=== PATIENT | male | born 1975 ===

== ENCOUNTER 2016-07-15 17:01 | Emergency (ER) | payer SELFPAY ==
[2016-07-15 17:55] LABS: MEAN CORPUSCULAR HEMOGLOBIN 30.6 pg (27.0-33.0); MEAN CORPUSCULAR HGB CONC 32.6 g/dl (32.0-36.5); MEAN CORPUSCULAR VOLUME 93.7 fl (80.0-96.0); WHITE BLOOD COUNT 4.5 K/mm3 (4.0-10.0)
[2016-07-15 18:26] LABS: ALBUMIN 3.9 GM/DL (3.2-5.2); ALKALINE PHOSPHATASE 80 U/L (45-117); ALT/SGPT 25 U/L (12-78); ANION GAP 8 MEQ/L (8-16); AST/SGOT 13 U/L (15-37); BILIRUBIN,DIRECT 0.3 MG/DL (0.0-0.2); BILIRUBIN,TOTAL 1.8 MG/DL (0.2-1.0); BLOOD UREA NITROGEN 9 MG/DL (7-18); CALCIUM LEVEL 8.6 MG/DL (8.5-10.1); CARBON DIOXIDE LEVEL 28 MEQ/L (21-32); CHLORIDE LEVEL 106 MEQ/L (98-107); CREATININE FOR GFR 0.98 MG/DL (0.70-1.30); GLOMERULAR FILTRATION RATE > 60.0 (>60); GLUCOSE, FASTING 99 MG/DL (70-105); POTASSIUM SERUM 3.7 MEQ/L (3.5-5.1); SODIUM LEVEL 142 MEQ/L (136-145); TOTAL PROTEIN 7.8 GM/DL (6.4-8.2)
--- NOTE | 2016-07-15 18:53 | EDDOCDS ---
Physician Documentation [facility] Name: Damon Pryor Age: 41 yrs Sex: Male : 1975 Arrival Date: 07/15/2016 Time: 17:01 Bed 12 Private MD: Disposition: 07/15/16 18:40 Discharged to Home/Self Care. Impression: Suicidal ideations, Suicide attempt. - Condition is Stable. - Discharge Instructions: Depression, Adult, Depression, Adult, [id number]. - Medication Reconciliation, Local Pharmacy Hours form. - Follow up: Private Physician; When: appropriate facility for psychiatric care. - Problem is new. - Symptoms are unchanged. Historical: - Allergies: CEPHALOSPORINS; - Home Meds: 1. ibuprofen 400 mg Oral tab 3 times per day as needed - PMHx: Allergies, Seasonal; - PSHx: none; - Social history: No barriers to communication noted, The patient speaks fluent Spanish, Smoking status: Patient states was never smoker of tobacco. - Family history: Not pertinent. - : The pt / caregiver states he / she is not on anticoagulants. Home medication list is obtained from the facility AUG. - Exposure Risk Screening:: None identified. Vital Signs: 07/15 17:10 BP 130 / 6; Pulse 62; Resp 16; Pulse Ox 99% on R/A; Weight 104.33 kg / 230.01 lbs (R); kr3 Height 6 ft. (182.88 cm) (R); 18:19 Temp 98(O); kr3 18:51 BP 140 / 88; Pulse 85; Resp 16; Pulse Ox 98% on R/A; Pain 3/10; kr3 17:10 Body Mass Index 31.19 (104.33 kg, 182.88 cm) kr3 MDM: 17:05 Consult PFS/PSA/Vehicle Insurance Agent ordered. sd1 17:05 Consult PFS/PSA/Vehicle Insurance Agent: Patient's case requires discussion with on-call sd1 Psychiatrist ordered. 17:05 PSA/PFS to call Nursing Stock Ranch Supervisor, to enter patient data on [place] if patient sd1 involuntarily admitted or transferred for SI or HI ordered. 17:05 Confirm accurate psychiatric medication list and times of last dosage ordered. sd1 17:05 Detain Pt Until Medically/PFS Cleared ordered. sd1 17:06 Acetaminophen Level Ordered. EDMS 17:06 Basic Metabolic Profile Ordered. EDMS 17:06 Complete Blood Count Ordered. EDMS 17:06 Drug Eval Toxicology ED Only Ordered. EDMS 17:06 Ethyl Alcohol (ethanol) Ordered. EDMS 17:06 Liver Profile Ordered. EDMS 17:06 Salicylate Level Ordered. EDMS 17:06 Thyroid Stimulating Hormone Ordered. EDMS 17:15 Chest, 1 View Ordered. EDMS 17:15 ECG WITH READING ER PHYS+CARDIAG ordered. EDMS 17:15 CIP Ordered. EDMS 17:15 Troponin Ordered. EDMS 18:24 Complete Blood Count Reviewed. sd1 18:24 CIP Reviewed. sd1 18:24 Troponin Reviewed. sd1 18:33 Acetaminophen Level Reviewed. sd1 18:33 Liver Profile Reviewed. sd1 18:33 Salicylate Level Reviewed. sd1 18:33 Basic Metabolic Profile Reviewed. sd1 18:33 Ethyl Alcohol (ethanol) Reviewed. sd1 18:33 Thyroid Stimulating Hormone Reviewed. sd1 Signatures: Dispatcher [employer] [facility] Carmelina Webb MD MD sd1 Jyoti Nunez,RN RN kr3 [facility]
--- NOTE | 2016-07-15 18:53 | EDDOCDS ---
Nurse's Notes [facility] Name: Damon Pryor Age: 41 yrs Sex: Male : 1975 Arrival Date: 07/15/2016 Time: 17:01 Bed 12 Private MD: Diagnosis: Suicidal ideations;Suicide attempt Presentation: 07/15 17:03 Presenting complaint: EMS states: right lateral chest pain this afternoon. HAs been kr3 upset over grandfather dying and had been crying. Was hyperventilating per EMS. After calming symptoms were gone. Mental Health Triage Level: Level 2: The patient displays active suicidal ideations. Adult Sepsis Screening: The patient does not have new or worsening altered mentation. Patient's respiratory rate is less than 22. Systolic blood pressure is greater than 100. Patient has a qSOFA score of 0- Negative Sepsis Screen. Status: Patient is not a automotive service director or dependent. Transition of care: patient was not received from another setting of care. 17:03 Acuity: NICOLE Level 3 kr 17:03 Method Of Arrival: Ambulance 3 17:07 Presenting complaint: Patient states: right upper chest which began 1 day ago. Reports dwayne does not want to be here and wants to join his grandfather who recently. He states will try again to end his life. Suicide/Homicide risk assessment- the patient denies having any suicidal and/or homicidal ideations and does not present with any other emotional, behavioral or mental health complaints. 17:11 Presenting complaint: guards reports were driving home from , patient in back of 3 van and guards noticed patient had placed a plastic bag over his head. Patient has not been eating well recently. Triage Assessment: 17:07 General: Appears in no apparent distress, Behavior is cooperative, quiet. General: kr3 Behavior is crying. Pain: Pain currently is 4 out of 10 on a pain scale. Pt Declines HIV testing. The patient is triaged at the bedside. See Assessment in Nurses Notes section of ED record. Neurological: Level of Consciousness is awake, alert. Respiratory: Respiratory effort is even, unlabored. Derm: Skin is normal. Historical: - Allergies: CEPHALOSPORINS; - Home Meds: 1. ibuprofen 400 mg Oral tab 3 times per day as needed - PMHx: Allergies, Seasonal; - PSHx: none; - Social history: No barriers to communication noted, The patient speaks fluent Estonian, Smoking status: Patient states was never smoker of tobacco. - Family history: Not pertinent. - : The pt / caregiver states he / she is not on anticoagulants. Home medication list is obtained from the facility AUG. - Exposure Risk Screening:: None identified. Screenin:14 Screening information is obtained from the patient. Fall risk: No risks identified. kr3 Assistance ADL's: Requires assistance with meal preparation, this assistance is provided by residence staff. Abuse/DV Screen: The patient / caregiver reports he/she is: not in a situation that causes fear, pain or injury. Nutritional screening: No deficits noted. Advance Directives: Currently, there is no health care proxy. home support is adequate. Assessment: 18:17 Reassessment: Patient appears in no apparent distress at this time. General: Behavior kr3 is cooperative. Respiratory: Respiratory effort is even, unlabored. Derm: Skin is normal. Social Work Consult: 17:25 Social Work Note: Per Lt Graves at [facility], pt will be kept ac on 1:1 until an inpatient psychiatric bed can be found at an approved forensic psych. facility. Pt to be d/c in custody of corrections officers. No further intervention required at this time. Vital Signs: 17:10 BP 130 / 6; Pulse 62; Resp 16; Pulse Ox 99% on R/A; Weight 104.33 kg (R); Height 6 ft. kr3 (182.88 cm) (R); 18:19 Temp 98(O); kr3 18:51 BP 140 / 88; Pulse 85; Resp 16; Pulse Ox 98% on R/A; Pain 3/10; kr3 17:10 Body Mass Index 31.19 (104.33 kg, 182.88 cm) kr3 Vitals: 17:10 Log In Time N/A - ambulance arrival. kr3 ED Course: 17:01 Patient visited by Hailey Levy PCA. ar3 17:01 Patient moved to Waiting ar3 17:02 Jyoti Nunez,RN is Primary Nurse. ar3 17:02 Patient moved to 12 ar3 17:04 Triage Initiated kr3 17:05 Carmelina Webb MD is Attending Physician. sd1 17:14 Patient visited by Carmelina Webb MD. sd1 17:34 Patient visited by Herberth Diego PCA. jmv 17:34 EKG done. (by ED staff). Reviewed by Carmelina Webb MD. jmv 17:44 Troponin Sent. kr3 17:44 CIP Sent. kr3 17:44 Acetaminophen Level Sent. kr3 17:44 Basic Metabolic Profile Sent. kr3 17:44 Complete Blood Count Sent. kr3 17:44 Ethyl Alcohol (ethanol) Sent. kr3 17:44 Liver Profile Sent. kr3 17:44 Salicylate Level Sent. kr3 17:44 Thyroid Stimulating Hormone Sent. kr3 18:17 Patient visited by Jyoti Nunez RN. kr3 18:18 The patient / caregiver is instructed regarding the plan of care and ED course. kr3 Accompanied by Law Enforcement, Patient has correct armband on for positive identification. Bed in low position. Call light in reach. Side rails up X2. 18:23 Drug Eval Toxicology ED Only Sent. kr3 18:51 No IV's were initiated during this patient's visit. No procedures done that require kr3 assistance. Output: 18:24 Urine: 300.00ml (Voided); Total: 300.00ml. kr3 Order Results: Lab Order: Acetaminophen Level; SPEC'M 07/15/16 17:40 Test: ACETAMINOPHEN LEVEL; Value: < 2.0; Range: 10.0-30.0; Abnormal: Below low normal; Units: UG/ML; Status: F Lab Order: Basic Metabolic Profile; SPEC'M 07/15/16 17:40 Test: GLUCOSE, FASTING; Value: 99; Range: 70-105; Units: MG/DL; Status: F Test: BLOOD UREA NITROGEN; Value: 9; Range: 7-18; Units: MG/DL; Status: F Test: CREATININE FOR GFR; Value: 0.98; Range: 0.70-1.30; Units: MG/DL; Status: F Test: GLOMERULAR FILTRATION RATE; Value: > 60.0; Range: >60; Status: F Test: SODIUM LEVEL; Value: 142; Range: 136-145; Units: MEQ/L; Status: F Test: POTASSIUM SERUM; Value: 3.7; Range: 3.5-5.1; Units: MEQ/L; Status: F Test: CHLORIDE LEVEL; Value: 106; Range: 98-107; Units: MEQ/L; Status: F Test: CARBON DIOXIDE LEVEL; Value: 28; Range: 21-32; Units: MEQ/L; Status: F Test: ANION GAP; Value: 8; Range: 8-16; Units: MEQ/L; Status: F Test: CALCIUM LEVEL; Value: 8.6; Range: 8.5-10.1; Units: MG/DL; Status: F Test Note: ; Units are mL/min/1.73 m2 Chronic Kidney Disease Staging per NKF: Stage I & II GFR >=60 Normal to Mildly Decreased Stage III GFR 30-59 Moderately Decreased Stage IV GFR 15-29 Severely Decreased Stage V GFR <15 Very Little GFR Left ESRD GFR <15 on ELECTRIC REFRIGERATOR PREPARER Lab Order: Complete Blood Count; SPEC'M 07/15/16 17:40 Test: WHITE BLOOD COUNT; Value: 4.5; Range: 4.0-10.0; Units: K/mm3; Status: F Test: RED BLOOD COUNT; Value: 4.97; Range: 4.30-6.10; Units: M/mm3; Status: F Test: HEMOGLOBIN; Value: 15.2; Range: 14.0-18.0; Units: g/dl; Status: F Test: HEMATOCRIT; Value: 46.6; Range: 42.0-52.0; Units: %; Status: F Test: MEAN CORPUSCULAR VOLUME; Value: 93.7; Range: 80.0-96.0; Units: fl; Status: F Test: MEAN CORPUSCULAR HEMOGLOBIN; Value: 30.6; Range: 27.0-33.0; Units: pg; Status: F Test: MEAN CORPUSCULAR HGB CONC; Value: 32.6; Range: 32.0-36.5; Units: g/dl; Status: F Test: RED CELL DISTRIBUTION WIDTH; Value: 13.0; Range: 11.5-14.5; Units: %; Status: F Test: PLATELET COUNT, AUTOMATED; Value: 103; Range: 150-450; Abnormal: Below low normal; Units: k/mm3; Status: F Test Note: ; Lge amt of large plt noted onslide. --- 07/15/161801 --- PLT previously reported as: 103 L k/mm3 Lab Order: Ethyl Alcohol (ethanol); 07/15/16 17:40 Test: ETHYL ALCOHOL (ETHANOL); Value: < 0.003; Range: 0.000-0.010; Units: %; Status: F Lab Order: Liver Profile; [facility] 07/15/16 17:40 Test: AST/SGOT; Value: 13; Range: 15-37; Abnormal: Below low normal; Units: U/L; Status: F Test: ALT/SGPT; Value: 25; Range: 12-78; Units: U/L; Status: F Test: ALKALINE PHOSPHATASE; Value: 80; Range: 45-117; Units: U/L; Status: F Test: BILIRUBIN,TOTAL; Value: 1.8; Range: 0.2-1.0; Abnormal: Above high normal; Units: MG/DL; Status: F Test: BILIRUBIN,DIRECT; Value: 0.3; Range: 0.0-0.2; Abnormal: Above high normal; Units: MG/DL; Status: F Test: TOTAL PROTEIN; Value: 7.8; Range: 6.4-8.2; Units: GM/DL; Status: F Test: ALBUMIN; Value: 3.9; Range: 3.2-5.2; Units: GM/DL; Status: F Test: ALBUMIN/GLOBULIN RATIO; Value: 1.00; Range: 1.00-1.93; Status: F Lab Order: Salicylate Level; 07/15/16 17:40 Test: SALICYLATE LEVEL; Value: < 1.7; Range: 5.0-30.0; Abnormal: Below low normal; Units: MG/DL; Status: F Lab Order: Thyroid Stimulating Hormone; 07/15/16 17:40 Test: THYROID STIMULATING HORMONE; Value: 1.990; Range: 0.358-3.740; Units: uIU/ML; Status: F Lab Order: CIP; 07/15/16 17:40 Test: CPK CREATINE PHOSPHOKINASE; Value: 193; Range: 39-308; Units: U/L; Status: F Test: CK-MB VALUE MASS; Value: 1.0; Range: 0.0-3.6; Units: NG/ML; Status: F Test: MB/CK RELATIVE INDEX; Value: 0.51; Range: < OR =4; Status: F Test Note: ; DIAGNOSIS CRITERIA MMB ng/ml Relative Index (RI) NON-AMI < or = 5 N/A YOUNG ZONE > 5 < or = 4 AMI > 5 > 4 Lab Order: Troponin; STANLEY'Partha 07/15/16 17:40 Test: TROPONIN I; Value: < 0.02; Range: < 0.10; Units: NG/ML; Status: F Test Note: ; Troponin I Reference Interval for [place] LOCI: 99th Percentile= 0.00-0.045 ng/ml Risk Stratification: <= 0.10 ng/ml Decreased Risk for Adverse Clinical Events. 0.10-1.50 ng/ml Increased Risk for Adverse Clinical Events. Evaluation of additional criterion and/or repeat testing in 2-6 hours is suggested to rule out myocardial damage. >= 1.50 ng/ml Indicative of Myocardial Injury. Outcome: 18:19 No special radiology studies were completed. kr3 18:40 Discharge ordered by Provider. sd1 18:51 Discharge Assessment: patient administered narcotics - no. The following High Risk kr3 Discharge criteria are identified: None. Discharged to home ambulatory. Condition: stable. Discharge instructions given to patient, Instructed on discharge instructions, follow up and referral plans. Demonstrated understanding of instructions, Pt was receptive of discharge instructions/ teaching. Property sent home with patient. 18:52 Patient left the ED. kr3 Signatures: Carmelina Webb MD MD sd1 Delmar Alvarenga, PSA PSA Jyoti Arriaga RN RN kr3 Hailey Levy, ASSOCIATE BIOLOGICAL SALES ASSOCIATE BIOLOGICAL SALES ar3 Herberth Diego, ASSOCIATE BIOLOGICAL SALES ASSOCIATE BIOLOGICAL SALES jmv Corrections: (The following items were deleted from the chart) 17:14 17:03 Mental Health Triage Level: Level 1- Pt displays no suicidal or homicidal kr3 ideations and does not appear to be a danger to self or others. kr3 17:14 17:07 Presenting complaint: Patient states: right upper chest which began 1 day ago kr3 kr3 MTDD
[2016-07-15 18:58] LABS: AMPHETAMINES LEVEL URINE NEGATIVE (NEGATIVE); BENZODIAZEPINES URINE NEGATIVE (NEGATIVE); COCAINE METABOLITE URINE NEGATIVE (NEGATIVE); CONTROL LINE INT CTR LINE PRESENT; METHADONE URINE NEGATIVE (NEGATIVE); OPIATES URINE NEGATIVE (NEGATIVE); TRICYCLIC ANTIDEPRESS URINE NEGATIVE (NEGATIVE)
--- NOTE | 2016-07-16 06:36 | ECGEPIP ---
Stationary ECG Study [facility] - ED Test Date: 2016-07-15 Pat Name: SREEKANTH UPTON Department: Room: - Gender: M Plan Nurse: jojo : 1975 Requested By: Carmelina Webb Order Number: [id number] Reading MD: Manolo Sawyer Measurements Intervals Shirley Rate: 87 P: 52 OR: 166 QRS: 11 QRSD: 94 T: 22 QT: 370 QTc: 447 Interpretive Statements SINUS RHYTHM BENIGN EARLY REPOLARIZATION NO PRIORS Electronically Signed On 07-16-2016 6:36:18 EST by Manolo Sawyer
--- NOTE | 2016-07-16 07:28 | REP ---
CHEST X-RAY: Single view portable exam. HISTORY: Chest pain. No comparison views. FINDINGS: The lungs are well inflated and free of infiltrate. Pleural angles are sharp. Heart size is normal. Pulmonary vasculature is not increased. IMPRESSION: No active disease. Signed by Magdy Zayas MD 07/16/2016 08:23 A
--- NOTE | 2016-07-17 19:53 | EDDOCDS ---
Physician Documentation [facility] Name: Damon Pryor Age: 41 yrs Sex: Male : 1975 Arrival Date: 07/15/2016 Time: 17:01 Bed 12 Private MD: Disposition: 07/15/16 18:40 Discharged to Home/Self Care. Impression: Suicidal ideations, Suicide attempt. - Condition is Stable. - Discharge Instructions: Depression, Adult, Depression, Adult, [id number]. - Medication Reconciliation, Local Pharmacy Hours form. - Follow up: Private Physician; When: appropriate facility for psychiatric care. - Problem is new. - Symptoms are unchanged. Historical: - Allergies: CEPHALOSPORINS; - Home Meds: 1. ibuprofen 400 mg Oral tab 3 times per day as needed - PMHx: Allergies, Seasonal; - PSHx: none; - Social history: No barriers to communication noted, The patient speaks fluent Azeri, Smoking status: Patient states was never smoker of tobacco. - Family history: Not pertinent. - : The pt / caregiver states he / she is not on anticoagulants. Home medication list is obtained from the facility AUG. - Exposure Risk Screening:: None identified. Vital Signs: 07/15 17:10 BP 130 / 6; Pulse 62; Resp 16; Pulse Ox 99% on R/A; Weight 104.33 kg / 230.01 lbs (R); kr3 Height 6 ft. (182.88 cm) (R); 18:19 Temp 98(O); kr3 18:51 BP 140 / 88; Pulse 85; Resp 16; Pulse Ox 98% on R/A; Pain 3/10; kr3 17:10 Body Mass Index 31.19 (104.33 kg, 182.88 cm) kr3 MDM: 17:05 Consult PFS/PSA/Custom Tailor ordered. sd1 17:05 Consult PFS/PSA/Custom Tailor: Patient's case requires discussion with on-call sd1 Psychiatrist ordered. 17:05 PSA/PFS to call Nursing Pattern Room Attendant, to enter patient data on [place] if patient sd1 involuntarily admitted or transferred for SI or HI ordered. 17:05 Confirm accurate psychiatric medication list and times of last dosage ordered. sd1 17:05 Detain Pt Until Medically/PFS Cleared ordered. sd1 17:06 Acetaminophen Level Ordered. EDMS 17:06 Basic Metabolic Profile Ordered. EDMS 17:06 Complete Blood Count Ordered. EDMS 17:06 Drug Eval Toxicology ED Only Ordered. EDMS 17:06 Ethyl Alcohol (ethanol) Ordered. EDMS 17:06 Liver Profile Ordered. EDMS 17:06 Salicylate Level Ordered. EDMS 17:06 Thyroid Stimulating Hormone Ordered. EDMS 17:15 Chest, 1 View Ordered. EDMS 17:15 ECG WITH READING ER PHYS+CARDIAG ordered. EDMS 17:15 CIP Ordered. EDMS 17:15 Troponin Ordered. EDMS 18:24 Complete Blood Count Reviewed. sd1 18:24 CIP Reviewed. sd1 18:24 Troponin Reviewed. sd1 18:33 Acetaminophen Level Reviewed. sd1 18:33 Liver Profile Reviewed. sd1 18:33 Salicylate Level Reviewed. sd1 18:33 Basic Metabolic Profile Reviewed. sd1 18:33 Ethyl Alcohol (ethanol) Reviewed. sd1 18:33 Thyroid Stimulating Hormone Reviewed. sd1 07/16 12:13 T-Sheet-- Draft Copy was scanned into [employer] and attached to record. gb 12:14 ECG/EKG was scanned into [employer] and attached to record. gb 12:14 Rhythm Strip was scanned into [employer] and attached to record. gb 12:14 PCR was scanned into [employer] and attached to record. gb Signatures: Dispatcher [employer] Carmelina Garcia MD MD sd1 Meli Mallory, Reg Reg gb Jyoti Nunez,RN RN kr3 The chart was reviewed and I authenticate all verbal orders and agree with the evaluation and treatment provided.Attachments: 12:13 T-Sheet-- Draft Copy gb 12:14 ECG/EKG gb Chart Complete MTDD
--- NOTE | 2016-07-17 19:53 | EDDOCDS ---
Nurse's Notes [facility] Name: Damon Upton Age: 41 yrs Sex: Male : 1975 Arrival Date: 07/15/2016 Time: 17:01 Bed 12 Private MD: Diagnosis: Suicidal ideations;Suicide attempt Presentation: 07/15 17:03 Presenting complaint: EMS states: right lateral chest pain this afternoon. HAs been kr3 upset over grandfather dying and had been crying. Was hyperventilating per EMS. After calming symptoms were gone. Mental Health Triage Level: Level 2: The patient displays active suicidal ideations. Adult Sepsis Screening: The patient does not have new or worsening altered mentation. Patient's respiratory rate is less than 22. Systolic blood pressure is greater than 100. Patient has a qSOFA score of 0- Negative Sepsis Screen. Status: Patient is not a youth services librarian or dependent. Transition of care: patient was not received from another setting of care. 17:03 Acuity: NICOLE Level 3 kr 17:03 Method Of Arrival: Ambulance 3 17:07 Presenting complaint: Patient states: right upper chest which began 1 day ago. Reports dwayne does not want to be here and wants to join his grandfather who recently. He states will try again to end his life. Suicide/Homicide risk assessment- the patient denies having any suicidal and/or homicidal ideations and does not present with any other emotional, behavioral or mental health complaints. 17:11 Presenting complaint: guards reports were driving home from , patient in back of 3 van and guards noticed patient had placed a plastic bag over his head. Patient has not been eating well recently. Triage Assessment: 17:07 General: Appears in no apparent distress, Behavior is cooperative, quiet. General: kr3 Behavior is crying. Pain: Pain currently is 4 out of 10 on a pain scale. Pt Declines HIV testing. The patient is triaged at the bedside. See Assessment in Nurses Notes section of ED record. Neurological: Level of Consciousness is awake, alert. Respiratory: Respiratory effort is even, unlabored. Derm: Skin is normal. Historical: - Allergies: CEPHALOSPORINS; - Home Meds: 1. ibuprofen 400 mg Oral tab 3 times per day as needed - PMHx: Allergies, Seasonal; - PSHx: none; - Social history: No barriers to communication noted, The patient speaks fluent Yoruba, Smoking status: Patient states was never smoker of tobacco. - Family history: Not pertinent. - : The pt / caregiver states he / she is not on anticoagulants. Home medication list is obtained from the facility AUG. - Exposure Risk Screening:: None identified. Screenin:14 Screening information is obtained from the patient. Fall risk: No risks identified. kr3 Assistance ADL's: Requires assistance with meal preparation, this assistance is provided by residence staff. Abuse/DV Screen: The patient / caregiver reports he/she is: not in a situation that causes fear, pain or injury. Nutritional screening: No deficits noted. Advance Directives: Currently, there is no health care proxy. home support is adequate. Assessment: 18:17 Reassessment: Patient appears in no apparent distress at this time. General: Behavior kr3 is cooperative. Respiratory: Respiratory effort is even, unlabored. Derm: Skin is normal. Social Work Consult: 17:25 Social Work Note: Per Lt Graves at [facility], pt will be kept ac on 1:1 until an inpatient psychiatric bed can be found at an approved forensic psych. facility. Pt to be d/c in custody of corrections officers. No further intervention required at this time. Vital Signs: 17:10 BP 130 / 6; Pulse 62; Resp 16; Pulse Ox 99% on R/A; Weight 104.33 kg (R); Height 6 ft. kr3 (182.88 cm) (R); 18:19 Temp 98(O); kr3 18:51 BP 140 / 88; Pulse 85; Resp 16; Pulse Ox 98% on R/A; Pain 3/10; kr3 17:10 Body Mass Index 31.19 (104.33 kg, 182.88 cm) kr3 Vitals: 17:10 Log In Time N/A - ambulance arrival. kr3 ED Course: 17:01 Patient visited by Hailey Levy PCA. ar3 17:01 Patient moved to Waiting ar3 17:02 Jyoti Nunez,RN is Primary Nurse. ar3 17:02 Patient moved to 12 ar3 17:04 Triage Initiated kr3 17:05 Carmelina Webb MD is Attending Physician. sd1 17:14 Patient visited by Carmelina Webb MD. sd1 17:34 Patient visited by Herberth Diego PCA. jmv 17:34 EKG done. (by ED staff). Reviewed by Carmelina Webb MD. jmv 17:44 Troponin Sent. kr3 17:44 CIP Sent. kr3 17:44 Acetaminophen Level Sent. kr3 17:44 Basic Metabolic Profile Sent. kr3 17:44 Complete Blood Count Sent. kr3 17:44 Ethyl Alcohol (ethanol) Sent. kr3 17:44 Liver Profile Sent. kr3 17:44 Salicylate Level Sent. kr3 17:44 Thyroid Stimulating Hormone Sent. kr3 18:17 Patient visited by Jyoti Nunez,PASCUAL. kr3 18:18 The patient / caregiver is instructed regarding the plan of care and ED course. kr3 Accompanied by Law Enforcement, Patient has correct armband on for positive identification. Bed in low position. Call light in reach. Side rails up X2. 18:23 Drug Eval Toxicology ED Only Sent. kr3 18:51 No IV's were initiated during this patient's visit. No procedures done that require kr3 assistance. 07/16 06:54 EKG-ADULT Returned. EDMS 07:50 Chest, 1 View Returned. EDMS 12:13 T-Sheet-- Draft Copy was scanned into Intoo and attached to record. gb 12:14 ECG/EKG was scanned into Intoo and attached to record. gb 12:14 Rhythm Strip was scanned into Intoo and attached to record. gb 12:14 PCR was scanned into Intoo and attached to record. gb Attachments: 12:14 Rhythm Strip gb Output: 07/15 18:24 Urine: 300.00ml (Voided); Total: 300.00ml. kr3 Order Results: Lab Order: Acetaminophen Level; SPEC'M 07/15/16 17:40 Test: ACETAMINOPHEN LEVEL; Value: < 2.0; Range: 10.0-30.0; Abnormal: Below low normal; Units: UG/ML; Status: F Lab Order: Basic Metabolic Profile; SPEC'M 07/15/16 17:40 Test: GLUCOSE, FASTING; Value: 99; Range: 70-105; Units: MG/DL; Status: F Test: BLOOD UREA NITROGEN; Value: 9; Range: 7-18; Units: MG/DL; Status: F Test: CREATININE FOR GFR; Value: 0.98; Range: 0.70-1.30; Units: MG/DL; Status: F Test: GLOMERULAR FILTRATION RATE; Value: > 60.0; Range: >60; Status: F Test: SODIUM LEVEL; Value: 142; Range: 136-145; Units: MEQ/L; Status: F Test: POTASSIUM SERUM; Value: 3.7; Range: 3.5-5.1; Units: MEQ/L; Status: F Test: CHLORIDE LEVEL; Value: 106; Range: 98-107; Units: MEQ/L; Status: F Test: CARBON DIOXIDE LEVEL; Value: 28; Range: 21-32; Units: MEQ/L; Status: F Test: ANION GAP; Value: 8; Range: 8-16; Units: MEQ/L; Status: F Test: CALCIUM LEVEL; Value: 8.6; Range: 8.5-10.1; Units: MG/DL; Status: F Test Note: ; Units are mL/min/1.73 m2 Chronic Kidney Disease Staging per NKF: Stage I & II GFR >=60 Normal to Mildly Decreased Stage III GFR 30-59 Moderately Decreased Stage IV GFR 15-29 Severely Decreased Stage V GFR <15 Very Little GFR Left ESRD GFR <15 on QUALITY CONTROL INSPECTOR Lab Order: Complete Blood Count; [facility]' 07/15/16 17:40 Test: WHITE BLOOD COUNT; Value: 4.5; Range: 4.0-10.0; Units: K/mm3; Status: F Test: RED BLOOD COUNT; Value: 4.97; Range: 4.30-6.10; Units: M/mm3; Status: F Test: HEMOGLOBIN; Value: 15.2; Range: 14.0-18.0; Units: g/dl; Status: F Test: HEMATOCRIT; Value: 46.6; Range: 42.0-52.0; Units: %; Status: F Test: MEAN CORPUSCULAR VOLUME; Value: 93.7; Range: 80.0-96.0; Units: fl; Status: F Test: MEAN CORPUSCULAR HEMOGLOBIN; Value: 30.6; Range: 27.0-33.0; Units: pg; Status: F Test: MEAN CORPUSCULAR HGB CONC; Value: 32.6; Range: 32.0-36.5; Units: g/dl; Status: F Test: RED CELL DISTRIBUTION WIDTH; Value: 13.0; Range: 11.5-14.5; Units: %; Status: F Test: PLATELET COUNT, AUTOMATED; Value: 103; Range: 150-450; Abnormal: Below low normal; Units: k/mm3; Status: F Test Note: ; Lge amt of large plt noted onslide. --- 07/15/161801 --- PLT previously reported as: 103 L k/mm3 Lab Order: Drug Eval Toxicology ED Only; SPEC'M 07/15/16 18:21 Test: AMPHETAMINES LEVEL URINE; Value: NEGATIVE; Range: NEGATIVE; Status: F Test: BARBITURATES URINE; Value: NEGATIVE; Range: NEGATIVE; Status: F Test: BENZODIAZEPINES URINE; Value: NEGATIVE; Range: NEGATIVE; Status: F Test: CANNABINOIDS URINE; Value: NEGATIVE; Range: NEGATIVE; Status: F Test: COCAINE METABOLITE URINE; Value: NEGATIVE; Range: NEGATIVE; Status: F Test: METHADONE URINE; Value: NEGATIVE; Range: NEGATIVE; Status: F Test: OPIATES URINE; Value: NEGATIVE; Range: NEGATIVE; Status: F Test: TRICYCLIC ANTIDEPRESS URINE; Value: NEGATIVE; Range: NEGATIVE; Status: F Test Note: ; ALL PRESUMPTIVE POSITIVE FINDINGS ARE UNCONFIRMED NORMAL VALUES THRESHOLD IN NG/ML AMPHETAMINES 1000 METHAMPHETAMINES 1000 BARBITURATES 300 BENZODIAZEPINES 300 CANNABINOIDS (THC) 50 COCAINE METABOLITE 300 METHADONE 300 OPIATES 300 PHENCYCLIDINE 25 TRICYCLIC ANTIDEPRESSANTS 1000 RESULTS ARE FOR MEDICAL PURPOSES ONLY. ALL URINE SPECIMENS WILL BE SAVED FOR 3 DAYS. IF CONFIRMATION OF A PRESUMPTIVE POSTIVE SCREEN RESULT IS DESIRED, CALL CHEMISTRY ([phone]) AND REQUEST URINE TO BE SENT TO REFERENCE LAB. FOR A LIST OF CLOSELY RELATED COMPOUNDS PLEASE CALL THE LAB. Lab Order: Ethyl Alcohol (ethanol); SPEC'M 07/15/16 17:40 Test: ETHYL ALCOHOL (ETHANOL); Value: < 0.003; Range: 0.000-0.010; Units: %; Status: F Lab Order: Liver Profile; SPEC'M 07/15/16 17:40 Test: AST/SGOT; Value: 13; Range: 15-37; Abnormal: Below low normal; Units: U/L; Status: F Test: ALT/SGPT; Value: 25; Range: 12-78; Units: U/L; Status: F Test: ALKALINE PHOSPHATASE; Value: 80; Range: 45-117; Units: U/L; Status: F Test: BILIRUBIN,TOTAL; Value: 1.8; Range: 0.2-1.0; Abnormal: Above high normal; Units: MG/DL; Status: F Test: BILIRUBIN,DIRECT; Value: 0.3; Range: 0.0-0.2; Abnormal: Above high normal; Units: MG/DL; Status: F Test: TOTAL PROTEIN; Value: 7.8; Range: 6.4-8.2; Units: GM/DL; Status: F Test: ALBUMIN; Value: 3.9; Range: 3.2-5.2; Units: GM/DL; Status: F Test: ALBUMIN/GLOBULIN RATIO; Value: 1.00; Range: 1.00-1.93; Status: F Lab Order: Salicylate Level; [facility] 07/15/16 17:40 Test: SALICYLATE LEVEL; Value: < 1.7; Range: 5.0-30.0; Abnormal: Below low normal; Units: MG/DL; Status: F Lab Order: Thyroid Stimulating Hormone; [facility] 07/15/16 17:40 Test: THYROID STIMULATING HORMONE; Value: 1.990; Range: 0.358-3.740; Units: uIU/ML; Status: F Lab Order: CIP; [facility] 07/15/16 17:40 Test: CPK CREATINE PHOSPHOKINASE; Value: 193; Range: 39-308; Units: U/L; Status: F Test: CK-MB VALUE MASS; Value: 1.0; Range: 0.0-3.6; Units: NG/ML; Status: F Test: MB/CK RELATIVE INDEX; Value: 0.51; Range: < OR =4; Status: F Test Note: ; DIAGNOSIS CRITERIA MMB ng/ml Relative Index (RI) NON-AMI < or = 5 N/A YOUNG ZONE > 5 < or = 4 AMI > 5 > 4 Lab Order: Troponin; [facility]' 07/15/16 17:40 Test: TROPONIN I; Value: < 0.02; Range: < 0.10; Units: NG/ML; Status: F Test Note: ; Troponin I Reference Interval for [employer] [place] LOCI: 99th Percentile= 0.00-0.045 ng/ml Risk Stratification: <= 0.10 ng/ml Decreased Risk for Adverse Clinical Events. 0.10-1.50 ng/ml Increased Risk for Adverse Clinical Events. Evaluation of additional criterion and/or repeat testing in 2-6 hours is suggested to rule out myocardial damage. >= 1.50 ng/ml Indicative of Myocardial Injury. Radiology Order: Chest, 1 View Test: Chest, 1 View REASON FOR EXAMINATION: Chest Pain; CHEST X-RAY: Single view portable exam.; ; HISTORY: Chest pain. No comparison views.; ; FINDINGS: The lungs are well inflated and free of infiltrate. Pleural angles; are sharp. Heart size is normal. Pulmonary vasculature is not increased.; ; IMPRESSION:; ; No active disease.; ; ; Signed by; Magdy Zayas MD 07/16/2016 08:23 A; Radiology Order: EKG-ADULT Test: EKG-ADULT REASON FOR EXAMINATION: Chest Pain; Stationary ECG Study; [facility] - ED; ; Test Date: 2016-07-15; Pat Name: DAMON UTPON Department:; Room: -; Gender: M Finger Cobbler: jojo; : 1975 Requested By: Carmelina Webb; Order Number: [id number] Reading MD: Manolo Sawyer; Measurements; Intervals [place]; Rate: 87 P: 52; ID: [id number] QRS: 11; QRSD: 94 T: 22; QT: 370; QTc: 447; Interpretive Statements; SINUS RHYTHM; BENIGN EARLY REPOLARIZATION; NO PRIORS; ; Electronically Signed On 07-16-2016 6:36:18 EST by Manolo Sawyer; Outcome: 18:19 No special radiology studies were completed. kr3 18:40 Discharge ordered by Provider. sd1 18:51 Discharge Assessment: patient administered narcotics - no. The following High Risk kr3 Discharge criteria are identified: None. Discharged to home ambulatory. Condition: stable. Discharge instructions given to patient, Instructed on discharge instructions, follow up and referral plans. Demonstrated understanding of instructions, Pt was receptive of discharge instructions/ teaching. Property sent home with patient. 18:52 Patient left the ED. kr3 Signatures: Dispatcher MedHost EDCarmelina Guillory MD MD sd1 Delmar Alvarenga, PSA PSA ac Meli Mallory, Reg Reg Jyoti Cintron,PASCUAL RN kr3 Hailey Levy, SELF PROPELLED MINING MACHINE OPERATOR SELF PROPELLED MINING MACHINE OPERATOR ar3 Herberth Diego, SELF PROPELLED MINING MACHINE OPERATOR SELF PROPELLED MINING MACHINE OPERATOR jmv Corrections: (The following items were deleted from the chart) 17:14 17:03 Mental Health Triage Level: Level 1- Pt displays no suicidal or homicidal kr3 ideations and does not appear to be a danger to self or others. kr3 17:14 17:07 Presenting complaint: Patient states: right upper chest which began 1 day ago kr3 kr3 Chart Complete MTDD
--- NOTE | 2016-07-17 19:53 | EDDOCDS ---
Physician Documentation [facility] Name: Damon Pryor Age: 41 yrs Sex: Male : 1975 Arrival Date: 07/15/2016 Time: 17:01 Bed 12 Private MD: Disposition: 07/15/16 18:40 Discharged to Home/Self Care. Impression: Suicidal ideations, Suicide attempt. - Condition is Stable. - Discharge Instructions: Depression, Adult, Depression, Adult, [id number]. - Medication Reconciliation, Local Pharmacy Hours form. - Follow up: Private Physician; When: appropriate facility for psychiatric care. - Problem is new. - Symptoms are unchanged. Historical: - Allergies: CEPHALOSPORINS; - Home Meds: 1. ibuprofen 400 mg Oral tab 3 times per day as needed - PMHx: Allergies, Seasonal; - PSHx: none; - Social history: No barriers to communication noted, The patient speaks fluent Maltese, Smoking status: Patient states was never smoker of tobacco. - Family history: Not pertinent. - : The pt / caregiver states he / she is not on anticoagulants. Home medication list is obtained from the facility AUG. - Exposure Risk Screening:: None identified. Vital Signs: 07/15 17:10 BP 130 / 6; Pulse 62; Resp 16; Pulse Ox 99% on R/A; Weight 104.33 kg / 230.01 lbs (R); kr3 Height 6 ft. (182.88 cm) (R); 18:19 Temp 98(O); kr3 18:51 BP 140 / 88; Pulse 85; Resp 16; Pulse Ox 98% on R/A; Pain 3/10; kr3 17:10 Body Mass Index 31.19 (104.33 kg, 182.88 cm) kr3 MDM: 17:05 Consult PFS/PSA/Programming Internship ordered. sd1 17:05 Consult PFS/PSA/Programming Internship: Patient's case requires discussion with on-call sd1 Psychiatrist ordered. 17:05 PSA/PFS to call Nursing Dairy Equipment Repairer, to enter patient data on [place] Safe Act if patient sd1 involuntarily admitted or transferred for SI or HI ordered. 17:05 Confirm accurate psychiatric medication list and times of last dosage ordered. sd1 17:05 Detain Pt Until Medically/PFS Cleared ordered. sd1 17:06 Acetaminophen Level Ordered. EDMS 17:06 Basic Metabolic Profile Ordered. EDMS 17:06 Complete Blood Count Ordered. EDMS 17:06 Drug Eval Toxicology ED Only Ordered. EDMS 17:06 Ethyl Alcohol (ethanol) Ordered. EDMS 17:06 Liver Profile Ordered. EDMS 17:06 Salicylate Level Ordered. EDMS 17:06 Thyroid Stimulating Hormone Ordered. EDMS 17:15 Chest, 1 View Ordered. EDMS 17:15 ECG WITH READING ER PHYS+CARDIAG ordered. EDMS 17:15 CIP Ordered. EDMS 17:15 Troponin Ordered. EDMS 18:24 Complete Blood Count Reviewed. sd1 18:24 CIP Reviewed. sd1 18:24 Troponin Reviewed. sd1 18:33 Acetaminophen Level Reviewed. sd1 18:33 Liver Profile Reviewed. sd1 18:33 Salicylate Level Reviewed. sd1 18:33 Basic Metabolic Profile Reviewed. sd1 18:33 Ethyl Alcohol (ethanol) Reviewed. sd1 18:33 Thyroid Stimulating Hormone Reviewed. sd1 07/16 12:13 T-Sheet-- Draft Copy was scanned into MEDTechTurn and attached to record. gb 12:14 ECG/EKG was scanned into CliqsetST and attached to record. gb 12:14 Rhythm Strip was scanned into MEDHOST and attached to record. gb 12:14 PCR was scanned into MEDHOST and attached to record. gb Signatures: Dispatcher [employer] Carmelina Garcia MD MD sd1 Meli Mallory, Reg Reg gb Jyoti Nunez,RN RN kr3 The chart was reviewed and I authenticate all verbal orders and agree with the evaluation and treatment provided.Attachments: 12:13 T-Sheet-- Draft Copy gb 12:14 ECG/EKG gb Chart Complete MTDD
== END 2016-07-15 18:52 | disposition home or self-care (01) ==
LOC: M ED 17:01
DX: R45.851 Suicidal ideations (principal); J30.9 Allergic rhinitis, unspecified; Z88.8 Allergy status to other drugs, medicaments and biological substances
CPT/HCPCS: 36415; 71010; 80048; 80076; 80306; 82550; 82553; 84443; 85027; 93005; 99283; G0480